=== PATIENT | male | born 1950 | race Caucasian/White ===

== ENCOUNTER 2023-06-12 14:11 | Inpatient (IN) | payer OTHER ==
[~2023-06-12] VITALS: Ht 170.2 cm; Wt 59.4 kg
[~2023-06-12 14:11] MED LIST: ADULT LOW DOSE81 M1 PO; LIPITOR40 M1 PO; PLAVIX75 MG PO; SYNJARDY XR 101 EACH PO; TOPROL XL100 M1 PO
[2023-06-12 15:44] LABS: HEMATOCRIT 38.6 % (39.0-48.0); HEMOGLOBIN 12.2 g/dL (13-16.00); MEAN CELL VOLUME 81.6 fL (80.0-100.00); MEAN CORPUSCULAR HEMOGLOBIN 25.7 pg (27.00-32.0); MEAN CORPUSCULAR HGB CONC 31.6 g/dl (32.0-36.0); PLATELET COUNT 148 K/uL (150-450); RED BLOOD COUNT 4.74 M/uL (4.00-6.00); RED CELL DISTRIBUTION WIDTH 18.5 % (11.5-14.5)
[2023-06-12 16:03] LABS: INR 1.03; PROTHROMBIN TIME 10.8 SECONDS (9.0-11.5)
[2023-06-12 16:07] LABS: CALCIUM 9.9 mg/dL (8.5-10.1); CREATININE SERUM 0.8 mg/dL (0.70-1.30); GFR 94.5; POTASSIUM 3.9 mEq/L (3.5-5.1)
[2023-06-12 16:24] LABS: PH,URINE 5.5 (5.0-8.0); URINE APPEARANCE Clear; URINE BILIRRUBIN Negative (NEGATIVE); URINE BLOOD Negative; URINE COLOR Yellow; URINE LEUKOCYTE Negative; URINE NITRATE Negative; URINE PROTEIN Negative (NEGATIVE)
[2023-06-12 16:25] LABS: URINE BACTERIA 13.8 uL (0.0-1933); URINE EPITHELIAL CELLS 3.8 uL (0.0-38.8); URINE RBC 2.2 uL (0.0-20.8)
[2023-06-12 16:29] LABS: URINE GLUCOSE >=1000 MG/DL (NEGATIVE)
[2023-06-13] MEDS ORDERED: ENTRESTO 24 MG1 EACH (08:30)
[2023-06-13 19:54] LABS: HEMATOCRIT 37.4 % (39.0-48.0); HEMOGLOBIN 12.1 g/dL (13-16.00); MEAN CELL VOLUME 80.1 fL (80.0-100.00); MEAN CORPUSCULAR HGB CONC 32.5 g/dl (32.0-36.0); RED BLOOD COUNT 4.67 M/uL (4.00-6.00); RED CELL DISTRIBUTION WIDTH 18.5 % (11.5-14.5)
[2023-06-13 20:09] LABS: PLATELET COUNT 124 K/uL (150-450)
[2023-06-13 20:16] LABS: ALBUMIN 3.1 gm/dL (3.4-5.0); CALCIUM 9.5 mg/dL (8.5-10.1); CREATININE SERUM 0.63 mg/dL (0.70-1.30); GFR 124.49; MAGNESIUM 1.8 mg/dL (1.8-2.4); PHOSPHOROUS 3.2 mg/dL (2.5-4.9); POTASSIUM 4.49 mEq/L (3.5-5.1)
[2023-06-14 09:08] LABS: HEMATOCRIT 38.7 % (39.0-48.0); HEMOGLOBIN 12.4 g/dL (13-16.00); MEAN CORPUSCULAR HEMOGLOBIN 25.7 pg (27.00-32.0); MEAN CORPUSCULAR HGB CONC 32.1 g/dl (32.0-36.0); PLATELET COUNT 161 K/uL (150-450); RED BLOOD COUNT 4.84 M/uL (4.00-6.00)
[2023-06-14 09:51] LABS: ALBUMIN 3.4 gm/dL (3.4-5.0); CALCIUM 9.8 mg/dL (8.5-10.1); CREATININE SERUM 0.66 mg/dL (0.70-1.30); GFR 117.98; MAGNESIUM 1.9 mg/dL (1.8-2.4); PHOSPHOROUS 2.6 mg/dL (2.5-4.9); POTASSIUM 4.19 mEq/L (3.5-5.1)
[2023-06-16] MEDS ORDERED: NEURONTIN300 MG PO (12:04)
[2023-06-16] MEDS ORDERED: ACETAMINOPHEN500 M2 PO (12:04)
== END 2023-06-16 14:47 | disposition home or self-care (01) | DRG 330 ==
LOC: ER 14:11 → SURH 22:37
PROVIDERS: General Practice; ADMIT Surgery; ATTEND Surgery
PROC: 0DBP4ZZ Excision of Rectum, Percutaneous Endoscopic Approach (ICD-10-PCS; 2023-06-13)
PROC: 0DTN4ZZ Resection of Sigmoid Colon, Percutaneous Endoscopic Approach (ICD-10-PCS; 2023-06-13)
PROC: 07BC4ZZ Excision of Pelvis Lymphatic, Percutaneous Endoscopic Approach (ICD-10-PCS; 2023-06-13)
PROC: 0DBV4ZZ Excision of Mesentery, Percutaneous Endoscopic Approach (ICD-10-PCS; 2023-06-13)
PROC: 8E0W4CZ Robotic Assisted Procedure of Trunk Region, Percutaneous Endoscopic Approach (ICD-10-PCS; 2023-06-13)
PROC: B24BZZZ Ultrasonography of Heart with Aorta (ICD-10-PCS; 2023-06-13)
PROC: 0D1B4Z4 Bypass Ileum to Cutaneous, Percutaneous Endoscopic Approach (ICD-10-PCS; principal; 2023-06-13 18:00)
DX: C20 Malignant neoplasm of rectum (principal); K62.5 Hemorrhage of anus and rectum; R59.0 Localized enlarged lymph nodes; E78.5 Hyperlipidemia, unspecified; E11.9 Type 2 diabetes mellitus without complications; Z79.4 Long term (current) use of insulin; Z74.01 Bed confinement status; Z20.822 Contact with and (suspected) exposure to COVID-19; I25.10 Atherosclerotic heart disease of native coronary artery without angina pectoris; I11.0 Hypertensive heart disease with heart failure; I50.9 Heart failure, unspecified
CPT/HCPCS: 44207; 44213; 38571; 44187; S2900

== ENCOUNTER 2024-01-12 08:55 | Inpatient (IN) | payer OTHER ==
[~2024-01-12] VITALS: Ht 175.3 cm; Wt 61.7 kg
[~2024-01-12 08:55] MED LIST changes: +ACETAMINOPHEN500 M2 PO; +ENTRESTO 24 MG1 EACH; +NEURONTIN300 MG PO
[2024-01-12] MEDS ORDERED: JARDIANCE10 MG PO (10:41)
[2024-01-12] MEDS ORDERED: FERRO-TIME325 MG PO (10:42)
[2024-01-19] MEDS ORDERED: CHLORHEXIDINE GLUCONATE 120 ML BOTTLE TOP ONE (13:00)
[2024-01-19] MEDS ORDERED: LIDOCAINE HCL 1% 20ML VIAL IJ ONE (13:00)
[2024-01-19] MEDS ORDERED: METRONIDAZOLE/SODIUM CHLORIDE 500 MG/100 ML PIGGYBACK IV ONE (13:15)
[2024-01-19] MEDS ORDERED: CEFTRIAXONE SODIUM 2,000 MG VIAL IV ONE (13:15)
[2024-01-19] MEDS ORDERED: MORPHINE SULFATE 4 MG/ML CARTRIDGE IV PRN (14:30)
[2024-01-19] MEDS ORDERED: ONDANSETRON HCL 2 MG/ML VIAL IV PRN (14:30)
[2024-01-19] MEDS ORDERED: DEXTROSE 50 % IN WATER 0.5 G/ML VIAL IV PRN (14:30)
[2024-01-19] MEDS ORDERED: RINGERS SOLUTION,LACTATED 1,000 ML IV SCH (14:30)
[2024-01-19] MEDS ORDERED: OxyCODONE HCL 5 MG TABLET (ROXICODONE) PO PRN (14:30)
[2024-01-19] MEDS ORDERED: POLYETHYLENE GLYCOL 3350 17 GM BLIST.PACK PO SCH (17:00)
[2024-01-19] MEDS ORDERED: GABAPENTIN 300 MG CAPSULE PO SCH (17:00)
[2024-01-19] MEDS ORDERED: HYOSCYAMINE SULFATE 0.125 MG TAB.SUBL SL SCH (17:00)
[2024-01-19 19:36] LABS: HEMATOCRIT 36.5 % (39.0-48.0); HEMOGLOBIN 12.1 g/dL (13-16.00); MEAN CORPUSCULAR HEMOGLOBIN 30.2 pg (27.00-32.0); MEAN CORPUSCULAR HGB CONC 33.2 g/dl (32.0-36.0); RED BLOOD COUNT 4.01 M/uL (4.00-6.00); RED CELL DISTRIBUTION WIDTH 14.3 % (11.5-14.5)
[2024-01-19 19:43] LABS: PLATELET COUNT 105 K/uL (150-450)
[2024-01-19 19:59] LABS: ALBUMIN 3.4 gm/dL (3.4-5.0); CALCIUM 9.1 mg/dL (8.5-10.1); CREATININE SERUM 0.8 mg/dL (0.70-1.30); GFR 94.5; MAGNESIUM 1.7 mg/dL (1.8-2.4); PHOSPHOROUS 2.5 mg/dL (2.5-4.9); POTASSIUM 3.85 mEq/L (3.5-5.1)
[2024-01-19] MEDS ORDERED: ACETAMINOPHEN 500 MG GEL..CAP PO SCH (20:00)
[2024-01-19] MEDS ORDERED: FAMOTIDINE/PF 20 MG/2 ML VIAL IV PUSH SCH (21:00)
[2024-01-20 07:56] LABS: HEMOGLOBIN 12.2 g/dL (13-16.00); MEAN CELL VOLUME 90.4 fL (80.0-100.00); MEAN CORPUSCULAR HEMOGLOBIN 30.7 pg (27.00-32.0); MEAN CORPUSCULAR HGB CONC 33.9 g/dl (32.0-36.0); RED BLOOD COUNT 3.98 M/uL (4.00-6.00); RED CELL DISTRIBUTION WIDTH 14.2 % (11.5-14.5)
[2024-01-20 08:37] LABS: ALBUMIN 3.3 gm/dL (3.4-5.0); CREATININE SERUM 0.76 mg/dL (0.70-1.30); GFR 100.26; MAGNESIUM 1.7 mg/dL (1.8-2.4); PHOSPHOROUS 2.8 mg/dL (2.5-4.9); POTASSIUM 4.3 mEq/L (3.5-5.1)
[2024-01-20 08:47] LABS: PLATELET COUNT 111 K/uL (150-450)
[2024-01-20] MEDS ORDERED: PATIENTS OWN MEDICATION (MEDICAMENTO EN PISO) PO SCH (09:00)
[2024-01-20] MEDS ORDERED: METOPROLOL SUCCINATE 100 MG TAB.SR.24H PO SCH (09:00)
[2024-01-20] MEDS ORDERED: ENOXAPARIN SODIUM 40 MG/0.4 ML SYRINGE SUBCUTANEO SCH (17:00)
[2024-01-21] MEDS ORDERED: ENOXAPARIN SODIUM 40 MG/0.4 ML SYRINGE SUBCUTANEO SCH (09:00)
[2024-01-21] MEDS ORDERED: GAS RELIEF125 MG PO (13:47)
[2024-01-21] MEDS ORDERED: LEVSIN/SL0.125 MG SL (13:47)
[2024-01-21] MEDS ORDERED: INTESTINEX680 M1 PO (13:47)
[2024-01-21] MEDS ORDERED: TRAMADOL HCL50 MG PO (13:47)
== END 2024-01-21 14:53 | disposition home or self-care (01) | DRG 348 ==
LOC: O/R 01-19 08:21 → SURH 01-19 09:00
PROVIDERS: ADMIT Surgery; ATTEND Surgery
PROC: 0DBB4ZZ Excision of Ileum, Percutaneous Endoscopic Approach (ICD-10-PCS; principal; 2024-01-19 15:15)
DX: C20 Malignant neoplasm of rectum (principal); K62.5 Hemorrhage of anus and rectum; R59.0 Localized enlarged lymph nodes